=== PATIENT | female | born 1970 | race Caucasian/White ===

== ENCOUNTER 2020-04-08 13:14 | Outpatient (REF) | payer OTHER, SELFPAY ==
[2020-04-08 17:33] LABS: COVID-19 Test Negative (Negative)
== END 2020-04-08 13:15 | disposition home or self-care (01) ==
LOC: HO.LAB 13:14
PROVIDERS: PCP Nurse Practitioner Family; Visit Provider Internal Medicine
DX: Z20.828 Contact with and (suspected) exposure to other viral communicable diseases (principal)
CPT/HCPCS: 36415

== ENCOUNTER 2020-06-05 07:36 | Outpatient (REF) | payer OTHER, SELFPAY ==
[2020-06-05 08:16] LABS: COVID-19 Test Negative (Negative)
== END 2020-06-05 07:37 | disposition home or self-care (01) ==
LOC: HO.LAB 07:36
PROVIDERS: PCP Nurse Practitioner Family; Visit Provider Internal Medicine
DX: Z20.828 Contact with and (suspected) exposure to other viral communicable diseases (principal)
CPT/HCPCS: 87635; C9803

== ENCOUNTER 2020-07-01 10:48 | Outpatient (REF) | payer OTHER, SELFPAY ==
[2020-07-01 11:05] LABS: COVID-19 Test Negative (Negative)
== END 2020-07-01 10:49 | disposition home or self-care (01) ==
LOC: HO.EMPCOV 10:48
PROVIDERS: PCP Nurse Practitioner Family; Visit Provider Internal Medicine
DX: Z20.828 Contact with and (suspected) exposure to other viral communicable diseases (principal)
CPT/HCPCS: 87635; C9803

== ENCOUNTER 2020-07-18 12:49 | Outpatient (REF) | payer SELFPAY ==
[2020-07-18 13:39] LABS: Cholesterol 197 mg/dL
== END 2020-07-18 12:50 | disposition home or self-care (01) ==
LOC: HO.LNC 12:49
PROVIDERS: Visit Provider Pathology Anatomic Pathology & Clinical Pathology
DX: Z13.89 Encounter for screening for other disorder (principal)
CPT/HCPCS: 36415; 82465

== ENCOUNTER 2020-07-29 07:31 | Outpatient (REF) | payer OTHER, SELFPAY ==
--- NOTE | 2020-07-29 07:50 | MM_ITS ---
EXAMINATION: MM SCREENING DIGITAL BREAST TOMOSYNTHESIS, BILATERAL CLINICAL INFORMATION: Screening. Asymptomatic. The lifetime risk of breast cancer based on the Tyrer-Cuzick Model is 14%. COMPARISON: Mammography: 08/31/2018, 07/01/2017, 05/18/2016 TECHNIQUE: Digital breast tomosynthesis is performed in both the craniocaudal and mediolateral oblique views along with computer-aided detection (CAD). Synthesized 2D images are generated from the tomosynthesis. FINDINGS: The breasts are heterogeneously dense, which may obscure small masses (ACR BI-RADS breast composition Category c). Breast tissue composition borders on average fibroglandular. The left breast shows no developing density or interval mass or architectural abnormality. Neither breast shows abnormal calcifications. The axilla and skin contours are unremarkable. The right MLO tomography shows an oval smooth 0.9 x 0.8 mm nodular asymmetric density inferior retroareolar within 2 cm of nipple, without definite correlate on CC view. Patient will be recalled for additional imaging. MM/MM tomosynthesis screening BI IMPRESSION: 1. Right: Smooth nodular asymmetric density inferior retroareolar on MLO tomography. 2. Left: No mammographic evidence of malignancy. ASSESSMENT: BI-RADS 0: Incomplete - Need Additional Imaging Evaluation RECOMMENDATION: 1. Additional views of the right breast (3D spot ML; 3D spot CC). 2. Targeted ultrasound if warranted after review of the additional views. 3. Radiology department staff will contact the patient for additional imaging. This patient's information was entered into a reminder system with a target due date for their next mammogram.
== END 2020-07-29 07:32 | disposition home or self-care (01) ==
LOC: HO.MAMMO 07:31
PROVIDERS: Visit Provider Nurse Practitioner Family
DX: Z12.31 Encounter for screening mammogram for malignant neoplasm of breast (principal)
CPT/HCPCS: 77063; 77067

== ENCOUNTER 2020-08-02 08:31 | Outpatient (REF) | payer OTHER, SELFPAY ==
--- NOTE | 2020-08-02 08:37 | US_ITS ---
EXAMINATION: MM DIAGNOSTIC DIGITAL BREAST TOMOSYNTHESIS, RIGHT US DIAGNOSTIC ULTRASOUND BREAST, RIGHT CLINICAL INFORMATION: Recall for nodular asymmetric density retroareolar right breast on MLO view. COMPARISON: Mammography: 07/29/2020, 08/31/2018 TECHNIQUE: Digital breast tomosynthesis is performed. 2D images are generated from the tomosynthesis. The following views are obtained: Spot CC, spot ML. Ultrasound right breast is targeted to the retroareolar region. Grayscale imaging and color Doppler are performed without and with harmonics. FINDINGS: The breasts are heterogeneously dense, which may obscure small masses (ACR BI-RADS breast composition Category c). Additional views confirm subtle circumscribed nodular asymmetry retroareolar position, limited to the ML view. There is no correlate on the spot CC projection. No duct ectasia or architectural abnormality. Ultrasound demonstrates simple cyst retroareolar breast measuring 8 x 7 x 8 mm. Cyst is anechoic, circumscribed, increased through-transmission of sound, and no associated color flow. There is an adjacent satellite cyst measuring 3 mm. Results are discussed with the patient at time of visit. US/US breast RT limited IMPRESSION: Incidental 8 mm right retroareolar cyst with 3 mm adjacent satellite cyst. ASSESSMENT: BI-RADS 2: Benign RECOMMENDATION: Routine annual mammography screening. This patient's information was entered into a reminder system with a target due date for their next mammogram.
== END 2020-08-02 08:32 | disposition home or self-care (01) ==
LOC: HO.MAMMO 08:31
PROVIDERS: PCP Nurse Practitioner Family; Visit Provider Nurse Practitioner Family
DX: R92.2 Inconclusive mammogram (principal)
CPT/HCPCS: 76642; 77065

== ENCOUNTER 2020-10-30 11:38 | Outpatient (REF) | payer OTHER, SELFPAY ==
[2020-10-30 12:17] LABS: COVID-19 Test Negative (Negative)
== END 2020-10-30 11:39 | disposition home or self-care (01) ==
LOC: HO.EMPCOV 11:38
PROVIDERS: Visit Provider Internal Medicine
DX: Z20.822 Contact with and (suspected) exposure to COVID-19 (principal)
CPT/HCPCS: 36415; 87635; C9803

== ENCOUNTER 2021-08-21 13:28 | Outpatient (REF) | payer OTHER, SELFPAY ==
--- NOTE | ~2021-08-21 | MM_ITS ---
EXAMINATION: MM DIAGNOSTIC DIGITAL BREAST TOMOSYNTHESIS, BILATERAL US DIAGNOSTIC ULTRASOUND BREAST, LEFT CLINICAL INFORMATION: Chronic pain upper outer left breast for years. Family history breast cancer, paternal aunt. Due for yearly exam. The lifetime risk of breast cancer based on the Tyrer-Cuzick Model is 8%. COMPARISON: Mammography: 08/02/2020, 07/29/2020, 08/31/2018, 07/01/2017, 05/18/2016, 01/10/2015, 01/02/2014, 09/14/2012; left breast ultrasound 01/10/2015. TECHNIQUE: Digital breast tomosynthesis is performed in both the craniocaudal and mediolateral oblique views along with computer-aided detection (CAD). Synthesized 2D images are generated from the tomosynthesis. Additional left spot MLO x2 views are obtained. Ultrasound left breast is targeted to the upper outer quadrant. Grayscale imaging and color Doppler are performed without and with harmonics. FINDINGS: The breasts are heterogeneously dense, which may obscure small masses (ACR BI-RADS breast composition Category c). Parenchymal pattern is similar to prior studies. There is no developing density, significant mass, architectural abnormality, or abnormal calcifications. No CAD markings. There is no skin thickening or coarsening of the Pantera's ligaments. Axillary nodes show normal fatty margie. No coarsening of the Pantera's ligaments. No focal duct ectasia. Ultrasound demonstrates no cystic or solid mass or architectural abnormality. No focal duct ectasia. No skin thickening or edema tracking in soft tissue planes. Results are discussed with the patient at time of visit. MM/MM tomosynthesis diagnostic BI IMPRESSION: 1. No mammographic evidence of malignancy or inflammatory changes. 2. Unremarkable targeted left breast. ASSESSMENT: BI-RADS 1: Negative RECOMMENDATION: 1. Patient's chronic left breast pain should be managed based on the clinical impression. 2. Otherwise, routine annual screening mammography. This patient's information was entered into a reminder system with a target due date for their next mammogram.
== END 2021-08-21 13:29 | disposition home or self-care (01) ==
LOC: HO.MAMMO 13:28
PROVIDERS: PCP Registered Nurse; Visit Provider Registered Nurse
DX: N64.4 Mastodynia (principal)
CPT/HCPCS: 76642; 77062; 77066

== ENCOUNTER 2021-10-06 16:15 | Outpatient (REF) | payer OTHER, SELFPAY ==
--- NOTE | ~2021-10-06 | US_ITS ---
EXAMINATION: ULTRASOUND EXTREMITY NONVASCULAR CLINICAL INFORMATION: Right thigh pain COMPARISON: None TECHNIQUE: Grayscale and color imaging of the soft tissues of the right thigh FINDINGS: No solid or cystic mass, fluid collection or lymphadenopathy is seen. US/US extremity nonvascular IMPRESSION: No abnormality seen by ultrasound.
== END 2021-10-06 16:16 | disposition home or self-care (01) ==
LOC: HO.US 16:15
PROVIDERS: Visit Provider Registered Nurse
DX: M79.651 Pain in right thigh (principal)
CPT/HCPCS: 76882

== ENCOUNTER 2022-10-07 12:32 | Outpatient (REF) | payer OTHER, SELFPAY ==
--- NOTE | ~2022-10-07 | MM_ITS ---
EXAMINATION: MM SCREENING DIGITAL BREAST TOMOSYNTHESIS, BILATERAL CLINICAL INFORMATION: Screening. Asymptomatic. The lifetime risk of breast cancer based on the Tyrer-Cuzick Model is 9%. COMPARISON: Mammography: 08/21/2021, 08/02/2020, 07/29/2020, 08/31/2018, 07/01/2017, left breast ultrasound 08/21/2021, right breast ultrasound 08/02/2020 TECHNIQUE: Digital breast tomosynthesis is performed in both the craniocaudal and mediolateral oblique views along with computer-aided detection (CAD). Synthesized 2D images are generated from the tomosynthesis. FINDINGS: The breasts are heterogeneously dense, which may obscure small masses (ACR BI-RADS breast composition Category c). There are no significant masses, abnormal calcifications, or other abnormalities. Parenchymal pattern is similar to prior studies. There is no developing density or architectural abnormality. The axilla and skin contours are unremarkable. No significant changes. MM/MM tomosynthesis screening BI IMPRESSION: No mammographic evidence of malignancy. ASSESSMENT: BI-RADS 1: Negative RECOMMENDATION: Routine annual mammography screening. This patient's information was entered into a reminder system with a target due date for their next mammogram.
== END 2022-10-07 12:33 | disposition home or self-care (01) ==
LOC: HO.MAMMO 12:32
PROVIDERS: Visit Provider Registered Nurse
DX: Z12.31 Encounter for screening mammogram for malignant neoplasm of breast (principal)
CPT/HCPCS: 77063; 77067

== ENCOUNTER 2023-11-15 16:21 | Outpatient (REF) | payer OTHER, SELFPAY ==
--- NOTE | ~2023-11-15 | MM_ITS ---
EXAMINATION: MM SCREENING DIGITAL BREAST TOMOSYNTHESIS, BILATERAL CLINICAL INFORMATION: Screening. Asymptomatic. Positive family history of breast cancer. COMPARISON: Mammography: 10/07/2022, 08/21/2021, 08/02/2020, 07/29/2020, 08/31/2018, and dating back to 2014. Ultrasound left breast 08/21/2021, and right breast 08/02/2020. TECHNIQUE: Digital breast tomosynthesis is performed in both the craniocaudal and mediolateral oblique views along with computer-aided detection (CAD). Synthesized 2D images are generated from the tomosynthesis. FINDINGS: The breasts are heterogeneously dense, which may obscure small masses (ACR BI-RADS breast composition Category c). There are no suspicious masses, suspicious grouped calcifications, or areas of architectural distortion in either breast. The parenchymal pattern is stable from prior exams. No suspicious skin or axillary abnormality. MM/MM tomosynthesis screening BI IMPRESSION: No mammographic evidence of malignancy. No significant change. ASSESSMENT: BI-RADS BI-RADS 1 - Negative RECOMMENDATION: Routine annual mammography screening. 1 year F/U This examination should not preclude the clinical evaluation of a suspicious palpable abnormality. This patient's information was entered into a reminder system with a target due date for their next mammogram.
== END 2023-11-15 16:22 | disposition home or self-care (01) ==
LOC: HO.MAMMO 16:21
PROVIDERS: Visit Provider Registered Nurse
DX: Z12.31 Encounter for screening mammogram for malignant neoplasm of breast (principal)
CPT/HCPCS: 77063; 77067

== ENCOUNTER → 2023-11-15 16:30 | Outpatient (BNV) | payer OTHER, SELFPAY | PROVIDERS: Visit Provider Radiology Diagnostic Radiology | DX: Z12.31 Encounter for screening mammogram for malignant neoplasm of breast (principal) | CPT/HCPCS: 77063; 77067 ==

== ENCOUNTER → 2024-11-20 15:45 | Outpatient (BNV) | payer OTHER, SELFPAY | PROVIDERS: PCP Physician Assistant Surgical; Visit Provider Internal Medicine | DX: Z12.31 Encounter for screening mammogram for malignant neoplasm of breast (principal) | CPT/HCPCS: 77063; 77067 ==

== ENCOUNTER 2024-11-20 15:46 | Outpatient (REF) | payer OTHER, SELFPAY ==
--- OUTSIDE RECORDS SUMMARY | 2024-11-20 15:49 | XMS_ITS ---
[facility] Name [facility] Organization Unknown Encounters Encounter Type Encounter Reason Primary Diagnosis Location Date Ambulatory Benign neoplasm of cecum [facility] 09/17/2021 Ambulatory discuss polyp removal [facility] 07/15/2021 Care Team Organization Name Specialty Phone Email Start Date End Da te [facility] 09/17/2021 02/21/20 [facility] 09/17/2021 09/18/19 [facility] 07/15/20212021
--- OUTSIDE RECORDS SUMMARY | 2024-11-20 15:49 | XMS_ITS | Clinical Summary ---
Author Organization [facility] Address [address] [place] [address] Care Team Providers Care Hat Lacer Name Role Phone [place] Gustafson BURIAL NEEDS SALESPERSON Primary Care Provider Allergies No known active allergies Medications Multiple Vitamin (multivitamin) capsule Take 1 capsule by mouth daily. Active cholecalciferol (CHOLECALCIFERO L) 25 MCG (1000 UT) tablet Take 1,000 Units by mouth daily. Active Flaxseed, Linseed, (FLAXSEED OIL PO) Take by mouth. Active amoxicillin-cla vulanate (AUGMENTIN) 875-125 MG per tabletIndicatio ns:Adenomatous polyp of cecum Take 1 tablet by mouth 2 (two) times a day. 6 tablet 09/17/2021 Active ondansetron (ZOFRAN) 4 MG tabletIndicatio ns:Postoperativ e nausea Take 1 tablet (4 mg total) by mouth 3 times daily (every 8 hours) as needed for nausea or vomiting. 20 tablet 09/17/2021 Active Family History Medical History Relation Name Comments Cancer, other Maternal Grandfather Cancer, other Maternal Grandmother Prostate cancer Maternal Uncle Breast cancer Paternal Aunt Cancer, other Paternal Aunt Relation Name Status Comments Maternal Grandfather Maternal Grandmother Maternal Uncle Paternal Aunt Social History Tobacco Use Types Packs/Day Years Used Date Smoking Tobacco: Former Smokeless Tobacco: Never Alcohol Use Standard Drinks/Week Comments Never 0 (1 standard drink = 0.6 oz pur e alcohol) Comments Unknown Sex and Gender Information Value Date Recorded Sex Assigned at Not on file Legal Sex Female 6:49 PM EST Gender Identity Not on file Sexual Orientation Not on file Last Filed Vital Signs Vital Sign Reading Time Taken Comments Blood Pressure 110/71 09/17/2021 5:00 PM EDT Pulse 60 09/17/2021 5:00 PM EDT Temperature 36.7 ??C (98 ??F) 09/17/2021 5:00 PM EDT Respiratory Rate 23 09/17/2021 5:00 PM EDT Oxygen Saturation 98% 09/17/2021 5:00 PM EDT Inhaled Oxygen Concentration - - Weight 64.4 kg (142 lb) 09/15/2021 1:34 PM EDT Height 165.1 cm (5' 5 ) 09/15/2021 1:34 PM EDT Body Mass Index 23.63 09/15/2021 1:34 PM EDT Plan of Treatment Health Maintenance Due Date Last Done Comments Hepatitis C Virus Screening 1968 HIV Screening 1981 DTaP/Tdap/Td Vaccines (1 - Tdap) 12/23/1987 Hepatitis B Vaccines (1 of 3 - 19+ 3-dose series) 12/23/1987 Pap Smear (Ages 21-65) 1989 Mammogram 2008 Colonoscopy 2013 Pneumococcal Vaccines 50+ (1 of 1 - PCV) 2018 Zoster (Shingles) Vaccine (1 of 2) 2018 COVID-19 Vaccine (4 - season) 2024 07/28/2021, 09/12/2020, 08/08/2020 Influenza Vaccine 02/02/2025 08/18/2021, 04/25/2020 Medical Devices Implanted Type Area Avionics Electrical Engineer Device Identifier Shelf Expiration Date Model / Serial / Lot Resolution Ultra Clip Implanted:Qty: 3 on 09/17/2021 by Jd Ramos MD at [facility] [employer] [id number] / / Description:Not an implant. Charging purposes only. Stacey Orise [employer] Implanted:Qty: 1 on 09/17/2021 by Jd Ramos MD at [facility] [employer] [id number] / / Insurance [facility] Care Teams Hat Lacer Relationship Specialty Start Date End Date [place] Gustafson NP [address] [place] [id number] PCP - General Adult Health - PA/APNP/BURIAL NEEDS SALESPERSON/TARIFF EXPERT 09/15/21
--- OUTSIDE RECORDS SUMMARY | 2024-11-20 15:50 | XMS_ITS | Encounter Summary ---
Author Organization [facility] Address [address] [place] [id number] Phone Care Team Providers Care Ribbon Winder Name Role Phone YamiletFlorida lozano Comfort JUARES Primary Care Provider Carlos Can MD Primary Care Provider [phone] Viridiana Beatty MD Primary Care Provider [phone] Deep Benson PA-C Primary Care Provider [phone] Mauricio Portillo MD Unavailable [phone] Encounter Details Date Type Department Care Team (Late st Contact Info) Description 05/16/2021 Procedure Pass [facility] 4 ENDO DEPT [address] [place] [address], [address] [place] [address] Social History Tobacco Use Types Packs/Day Years Used Date Smoking Tobacco: Former Cigarettes 1 15 0 03/05/1980 - 03/05/1995 Smokeless Tobacco: Never Alcohol Use Standard Drinks/Week Comments No 0 (1 standard drink = 0.6 oz pur e alcohol) Comments Unknown Sex and Gender Information Value Date Recorded Sex Assigned at Not on file Legal Sex Female 9:36 PM EDT Gender Identity Not on file Sexual Orientation Not on file documented as of this encounter Plan of Treatment Upcoming Encounters Date Type Department Care Team (Late Contact Info) Description 12/04/2025 9:00 AM EDT Appointment [facility] Internal Medicine [address] [place], [place] [id number] Deep Benson PA-C [address] [place], [place] [phone] documented as of this encounter Visit Diagnoses Not on filedocumented in this encounter Additional Health Concerns Assessment Noted Time PHQ-2 Depression Total Score: 0 11/05/19 21 2:28 PM EDT documented as of this encounter Care Teams Ribbon Winder Relationship Specialty Start Date End Date [place] GustafsonMOR [address] [place] [address] [email or web address] PCP - General Internal Medicine 11/04/20 05/23/23 Carlos Can MD [address] [place] [address] [email or web address] PCP - General Internal Medicine 05/24/23 11/21/23 Viridiana Beatty MD [address] [place] [address], [address] [place] [address] [email or web address] PCP - General Internal Medicine 11/22/23 01/04/24 Deep Benson PA-C [address] [place] [address] PCP - General Physician Attorney General 01/05/24 Mauricio Portillo MD [address] [place] [id number] Gastroenterology 01/05/24 documented as of this encounter Additional Source Comments The information contained in this document represents components of the legal health record. It is not the complete legal health record.[facility]
--- OUTSIDE RECORDS SUMMARY | 2024-11-20 15:50 | XMS_ITS | Clinical Summary ---
Author Organization [facility] Address [address] [place] [id number] Phone Care Team Providers Care Community Worker Name Role Phone Deep Benson PA-C Primary Care Provider [phone] Mauricio Portillo MD Unavailable [phone] Allergies No known active allergies Medications MULTIVITAMIN ORAL Take by mouth. Active cholecalciferol, vitamin D3, (VITAMIN D3 ORAL) Take 1,000 Units by mouth daily. Active FLAXSEED ORAL Take 1 tablet by mouth daily. Active ubidecarenone (CO Q-10 ORAL) Take 1 tablet by mouth daily. Active Active Problems Problem Noted Date Diagnosed Date Pure hypercholesterolemia 07/10/2024 Assessment & Plan (07/10/2024 9:52 AM EST): Patient noted to have an elevated LDL of 134, I advised the patient to continue diet and exercise and co-Q10 daily. Will repeat lipid panel next year at her physical Bilateral lower extremity pain 07/10/2024 Assessment & Plan (07/10/2024 9:54 AM EST): Patient mentions more that it is a discomfort and tightness in legs. She denies any twitching or jumping of her legs. She denies any sharp pain down her legs. She does carry history of some low back pain but states that this is very different. It happens around 9:00 when she is sitting watching TV. Her potassium level is noted to be within normal limits. -I will obtain a magnesium level, CBC and iron panel Arthralgia of both hands 01/05/2024 Assessment & Plan (07/10/2024 9:51 AM EST): Patient with continued arthralgias of her hands. During one of her prior visits patient underwent labs to include ESR, CRP, KALANI and rheumatoid factor all of which were negative. Tylenol arthritis as needed Assessment & Plan (01/05/2024 12:18 PM EDT): Patient with bilateral thumb pain neck and back pain with a family history of arthritis -Obtain rheumatoid factor, KALANI, CRP and sed rate Atypical mole 01/05/2024 Assessment & Plan (01/05/2024 12:18 PM EDT): Dermatology referral Routine general medical exam ination at [facility] 07/07/2023 Assessment & Plan (07/10/2024 9:50 AM EST): Labs obtained prior to physical and these were reviewed with patient. 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 Patient due for colonoscopy this year and follows with Dr. Fragoso Assessment & Plan (07/07/2023 3:35 PM EST): Exam was unremarkable, we can continue recommending vitamin D and will also check a vitamin D level as it had been low in the past. Check CRP given the patient's polymyalgias. If elevated I might ask her to come back to do a more focused exam or perhaps do more lab work. Standard labs will include a CBC lipid profile and Chem-7 if blood sugars elevated obtain hemoglobin A1c. Patient's mammogram is up-to-date. Colonoscopy is up-to-date. Adenomatous polyp 03/03/2021 Overview (03/03/2021): 2020 colonoscopy Vitamin D deficiency 05/06/2018 Assessment & Plan (07/10/2024 9:49 AM EST): Patient's most recent vitamin D level noted at 38. She is to continue vitamin D3 1000 units daily Resolved Problems Problem Noted Date Diagnosed Date Resolved Date Injury of toe on right foot 04/05/2024 07/10/2024 Assessment & Plan (04/05/2024 10:49 AM EDT): Patient had an injury to her right great toe couple months ago while walking a significant amount. I do not appreciate any signs of infection however patient states that there is some pain and feels as though is that there is a foreign object. I do not appreciate any open sores. Will obtain a right foot x-ray for further evaluation Signs of infection to warrant antibiotic use. 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 No signs of infection. No tenderness to palpation. Unclear etiology of what she was experiencing however on physical exam today I do not see anything that precipitates further workup. She was advised if she starts to develop the pain again to call. Chronic cough 01/05/2024 07/10/2024 Assessment & Plan (01/05/2024 12:17 PM EDT): History of tobacco use for 15 years and most recently 2 years of cannabis use. Obtain chest x-ray if there is abnormalities on the chest x-ray would recommend obtaining a CT chest with IV contrast History of cold sores 05/06/20182024 Immunizations Immunization Administration Dates Next Due COVID-19 (Pre-04/26) Moderna Vaccine, mRNA, PF 07/28/2021,09/12/2020,08/08/2020 Influenza Quadrivalent Prese rvative Free IM 04/21/2023,04/16/2022,08/18/2021,2019 Tdap 03/04/2016 Family History Medical History Relation Comments Anxiety disorder Daughter 1 Anxiety disorder Daughter 2 No Known Problems Father Cancer Maternal Grandfather No Known Problems Mother Breast cancer Paternal Aunt Cancer Paternal Grandmother Anxiety disorder Sister Relation Status Comments Daughter 1 Alive Daughter 2 Alive Father Alive Maternal Grandfather Mother Alive Paternal Aunt (Age 62) Paternal Grandmother Sister Alive spot on lung Social History Tobacco Use Types Packs/Day Years Used Date Smoking Tobacco: Former Cigarettes 1 15 0 03/05/1980 - 03/05/1995 Smokeless Tobacco: Never Tobacco Cessation:Counseling Given: Not Answered Alcohol Use Standard Drinks/Week Comments Not Currently 0 (1 standard drink = 0.6 oz pur e alcohol) Child or Family Care Answer Date Record ed Do you have problems with on e of the following making it difficult for you to work, study, or receive health care? No 07/10/2024 Education Answer Date Recorded Are you interested in help w ith more adult education (for example, completing high school, GED, job training, learning the [place] language, technical skills, or developing parenting skills)? No 07/10/2024 Are you concerned about learning? Not on file 07/10/2024 No 07/10/2024 Yes 07/10/2024 Food Answer Date Recorded Within the past 6 months we worried whether our food would run out before we got money to buy more. Never True 07/10/2024 Within the past 6 months the food we bought just didn't last and we didn't have enough money to get more. Never True Residential Stability Answer Date Recor ded What is your housing situation today? I have allison sing 07/10/2024 How many times have you move d in the past 12 months? Zero (I did not move) 07/10/2024 Paying for Meds Answer Date Recorded Do you have trouble paying for medicines? No 07/10/2024 Paying Utility Bills Answer Date Record ed Do you have trouble paying your heating or elect ricity bill? No 07/10/2024 Transportation Answer Date Recorded Has the lack of transportati on kept you from medical appointments or from getting medications? No 07/10/2024 Digital Access Answer Date Recorded No 07/10/2024 Yes 07/10/2024 Do you have reliable internet access at home? Ye s 07/10/2024 Do you have a device (e.g., phone, tablet, computer) with a working camera? Yes 07/10/2024 Intimate Partner Violence Answer Date R ecorded Denied Basic Needs Not on file 07/10/2024 In the past 12 months have y ou been in a relationship with a person who hurts, threatens, or tries to control you? No 07/10/2024 Worried food would run out Not on file 07/10 In the past 12 months have y ou been in a relationship with a person who hurts, threatens, or tries to control you? No 07/10/2024 Comments Unknown Sex and Gender Information Value Date Recorded Sex Assigned at Not on file Legal Sex Female 9:36 PM EDT Gender Identity Not on file Sexual Orientation Not on file Last Filed Vital Signs Vital Sign Reading Time Taken Comments Blood Pressure 106/72 07/10/2024 9:06 AM EST Pulse 80 07/10/2024 9:06 AM EST Temperature 36.3 ??C (97.3 ??F) 07/10/2024 9:06 AM ES T Respiratory Rate 14 07/10/2024 9:06 AM EST Oxygen Saturation 97% 07/10/2024 9:06 AM EST Inhaled Oxygen Concentration - - Weight 58.4 kg (128 lb 12.8 oz) 07/10/2024 9:06 AM EST Height 159.9 cm (5' 2.95 ) 07/10/2024 9:06 AM ES T Body Mass Index 22.85 07/10/2024 9:06 AM EST Plan of Treatment Upcoming Encounters Date Type Department Care Team (Late st Contact Info) Description 12/04/2025 9:00 AM EDT Appointment [facility] [address] [place] [address] Deep Benson PA-C [address] [place] [address] [email or web address] Health Maintenance Due Date Last Done Comments HEPATITIS B SCREENING 1986 HEPATITIS B VACCINES (1 of 3 - 19+ 3-dose series) 12/23/1987 COLOGUARD 2013 FIT TEST 2013 FOBT 2013 SIGMOIDOSCOPY 2013 VIRTUAL COLONOSCOPY 2013 PNEUMOCOCCAL VACCINES (50+ years) (1 of 1 - PCV) 2018 ZOSTER VACCINES (1 of 2) 2018 INFLUENZA VACCINE (#1) 2024 3, 04/16/2022, 08/18/2021, Additional history exists COVID-19 VACCINE (5 - 2024-25 season) 2024 06/09/2022, 07/28/2021, 09/12/2020, Additional history exists COLONOSCOPY 01/09/2025 01/10/2024, 08/05, 02/28/2021 COLORECTAL CANCER SCREENING 01/09/2025 DEPRESSION SCREENING 07/10/2025 07/10/2024 MAMMOGRAM 11/14/2025 11/15/2023, 11/2022, 08/21/2021, Additional history exists Adult Td,Tdap Booster 03/04/2026 03/04/2016 LIPID PANEL 07/06/2029 07/06/2024, 09/2023, 08/18/2021, Additional history exists HEPATITIS C SCREENING Completed 11/06/2014 HIV ONE-TIME SCREENING (18-65 YEARS) Completed 04/13/2019 SMOKING STATUS SCREENING (Once After 26 Yrs) Completed 07/10/2024 HEPATITIS A VACCINES Aged Out No long er eligible based on patient's age to complete this topic HIB VACCINES Aged Out No longer eligi ble based on patient's age to complete this topic MENINGOCOCCAL VACCINES (ACWY) Aged Out No longer eligible based on patient's age to complete this topic Medical Devices Not on file Procedures Procedure Name Priority Date/Time Associated Diagnosis Comments LIPID PANEL Routine 07/06/2024 9:59 AM EST Annual physical exam COLONOSCOPY FOR RESULT ENTRY ONLY Routine 01/10/2024 2:48 PM EDT MAMMOGRAPHY Routine 11/15/2023 12:22 PM EDT OUTSIDE HEPATITIS C VIRUS SCREENING Routine 11/06/2014 from Last 3 Months or Most Recently Relevant to Health Maintenance Results * (ABNORMAL) Lipid panel (07/06/2024 9:59 AM EST) HDL 73 mg/dL [facility] Comment: ? Interpretation <40 mg/dL: Low HDL cholesterol (major risk factor for CHD) Greater than or equal to 60 mg/dL: High HDL cholesterol ( negative risk factor for CHD) HDL - cholesterol is affected by a number of factors, e.g. smoking, excerise, hormones, sex and age. CHOLESTEROL 236 0 - 240 mg/dL [facility] TRIGLYCERIDES 146 30 - 160 mg/dL [facility] LDL 134(H) 50 - 129 mg/dL [facility] Comment: LDL levels in terms of risk for coronary heart disease: <100 mg/dL: Optimal 100-129 mg/dL: Near or above optimal 130-159 mg/dL: Borderline high 160-189 mg/dL: High >190 mg/dL: Very High CARDIAC RISK RATIO 3.2(L) 3.3 - 4.4 C [facility] Blood 07/06/2024 9:59 AM EST 07/06/2024 10:03 AM EST Deep Benson PA-C LAB BLOOD ORDERABLES [facility] [address] [place] [address] * COLONOSCOPY FOR RESULT ENTRY ONLY (01/10/2024 2:48 PM EDT) Historical Provider HEALTH MAINTENANCE Edited Result - Final * HM MAMMOGRAPHY FOR RESULT ENTRY ONLY (11/15/2023 12:22 PM EDT) [place] [facility] HEALTH MAINTENANCE Maurisio kathrin Result - Final * Outside Hepatitis C Virus Screening (11/06/2014) Hepatitis C Screening - External Neg Historical Provider LAB BLOOD ORDERABLES Sofie l Result from Last 3 Months or Most Recently Relevant to Health Maintenance Insurance [facility] [place] [address] [place] [address] [place], [place] [address] [place] [address] HMO HMO O HMO HMO O Advance Directives For more information, please contact: [phone] (9AM - 5PM [facility], Wednesday-Wednesday) Documents on File Type Date Recorded Patient Inspector Toys Expl anation Healthcare Proxy 05/06/2018 [facility] Proxy Care Teams Community Worker Relationship Specialty Start Date End Date Deep Benson PA-C [address] [place] [id number] [email or web address] PCP - General Physician Chief Green Officer 01/05/24 Mauricio Portillo MD [address] [place] [id number] [email or web address] 01/05/24 Additional Source Comments The information contained in this document represents components of the legal health record. It is not the complete legal health record.[facility]
== END 2024-11-20 15:47 | disposition home or self-care (01) ==
LOC: HO.MAMMO 15:46
PROVIDERS: PCP Physician Assistant Surgical; Visit Provider Registered Nurse
DX: Z12.31 Encounter for screening mammogram for malignant neoplasm of breast (principal)
CPT/HCPCS: 77063; 77067

== ENCOUNTER 2024-12-04 09:30 | Outpatient (REF) | payer OTHER, SELFPAY ==
--- NOTE | ~2024-12-04 | US_ITS ---
EXAMINATION: MM DIAGNOSTIC DIGITAL BREAST TOMOSYNTHESIS, RIGHT Right limited ultrasound. CLINICAL INFORMATION: Call back from screening for asymmetry in the retroareolar region of the right breast on CC view. COMPARISON: Mammography: There is on PACS. TECHNIQUE: Digital breast tomosynthesis is performed in both the craniocaudal and mediolateral oblique views along with computer-aided detection (CAD). Synthesized 2D images are generated from the tomosynthesis. FINDINGS: The breasts are heterogeneously dense, which may obscure small masses (ACR BI-RADS breast composition Category c). Asymmetry retroareolar region of the right breast on CC view does not persist on additional imaging projections and likely represented overlapping breast tissue. No suspicious masses calcifications or other abnormal findings. Targeted color Doppler ultrasound scanning in the retroareolar region and from 10-2 o'clock demonstrates an incidental simple to minimally complicated cyst at 12:00 1 cm from nipple measuring 2 x 4 x 3 mm which is benign. US/US breast RT limited mamm only IMPRESSION: Simple to minimally complicated cyst on ultrasound. Benign. Otherwise no mammographic or sonographic abnormality ASSESSMENT: BI-RADS BI-RADS 2 - Benign Findings RECOMMENDATION: 1 year F/U Results were provided to the patient at time of visit by the technologist. This patient's information was entered into a reminder system with a target due date for their next mammogram. Electronically signed by: Oliva Mason DO 12/04/2024 11:46 AM EDT
== END 2024-12-04 09:31 | disposition home or self-care (01) ==
LOC: HO.MAMMO 09:30
PROVIDERS: PCP Physician Assistant Surgical; Visit Provider Physician Assistant Surgical
DX: N60.01 Solitary cyst of right breast (principal)
CPT/HCPCS: 76642; 77061; 77065

== ENCOUNTER → 2024-12-04 09:30 | Outpatient (BNV) | payer OTHER, SELFPAY | PROVIDERS: PCP Physician Assistant Surgical; Visit Provider Internal Medicine | DX: R92.8 Other abnormal and inconclusive findings on diagnostic imaging of breast (principal) | CPT/HCPCS: 76642; 77061; 77065 ==